=== PATIENT | female | born 1980 | race Caucasian/White ===

== ENCOUNTER 2018-06-12 07:15 | Day surgery (SDC) | payer OTHER ==
[~2018-06-12 07:15] MED LIST: CEFAZOLIN 1 GM INJ; LIDOCAINE 2% (SDV) 5 ML INJ
[2018-06-12] MEDS: SOD CHLORIDE 0.9% 1,000 ML IV (08:26)
[2018-06-12 08:29] LABS: ADD MAN DIFF? NO
[2018-06-12 08:37] LABS: BASOPHILS % 0.4 % (0.0-2.0); EOSINOPHILS # 0.4 10^3/ul (0.0-0.5); EOSINOPHILS % 4.2 % (0.0-7.0); HEMATOCRIT 34.5 % (37.0-47.0); HEMOGLOBIN 11.2 g/dl (12.0-16.0); LYMPHOCYTES # 2.7 10^3/ul (0.8-2.9); LYMPHOCYTES % 28.9 % (15.0-51.0); MEAN CORPUSCULAR HEMOGLOBIN 25.8 pg (29.0-33.0); MEAN CORPUSCULAR HGB CONC 32.5 g/dl (32.0-37.0); MEAN CORPUSCULAR VOLUME 79.5 fl (82.0-101.0); MEAN PLATELET VOLUME 9.2 fl (7.4-10.4); MONOCYTE # 0.6 10^3/ul (0.3-0.9); MONOCYTES % 6.7 % (0.0-11.0); NEUTROPHIL # 5.6 10^3/ul (1.6-7.5); NEUTROPHILS % 59.3 % (39.0-77.0); PLATELET COUNT 418 10^3/UL (140-415); RED BLOOD COUNT 4.34 10^6/ul (4.20-5.40); RED CELL DISTRIBUTION WIDTH 13.6 % (11.5-14.5)
[2018-06-12 08:37] LABS: WHITE BLOOD COUNT 9.5 10^3/ul (4.8-10.8)
[2018-06-12 08:54] LABS: ALANINE AMINOTRANSFERASE 33 IU/L (13-69); ALBUMIN 4.5 g/dl (3.3-4.9); ALBUMIN/GLOBULIN RATIO 1.25; ALKALINE PHOSPHATASE 88 IU/L (42-121); ANION GAP 15 (8-16); ASPARTATE AMINO TRANSFERASE 28 IU/L (15-46); BILIRUBIN,INDIRECT 0.6 mg/dl (0-1.1); BILIRUBIN,TOTAL 0.6 mg/dl (0.2-1.3); BLOOD UREA NITROGEN 12 mg/dl (7-20); CALCIUM 8.9 mg/dl (8.4-10.2); CARBON DIOXIDE 20 mmol/L (21-31); CHLORIDE 110 mmol/L (97-110); CREATININE 0.51 mg/dl (0.44-1.00); GLUCOSE 155 mg/dl (70-220); POTASSIUM 4.1 mmol/L (3.5-5.1); SODIUM 141 mmol/L (135-144); TOTAL PROTEIN 8.1 g/dl (6.1-8.1)
[2018-06-12] MEDS ORDERED: PROCHLORPERAZINE 10 MG INJ IV (09:30)
[2018-06-12] MEDS ORDERED: DIPHENHYDRAMINE 50 MG INJ IV (09:30)
[2018-06-12] MEDS ORDERED: OXYCODONE/ACETAMINOPHEN (5/325) TAB PO ×2 (09:30)
[2018-06-12] MEDS ORDERED: MEPERIDINE 25 MG INJ IV (09:30)
[2018-06-12] MEDS ORDERED: HYDROmorphONE 1 MG/5 ML IV SYRINGE IV ×3 (09:30)
[2018-06-12] MEDS ORDERED: FENTAnyl 50 MCG/ML VIAL IV ×3 (09:30)
[2018-06-12 09:32] LABS: INR 0.96; PROTIME 12.9 Sec (11.9-14.9)
[2018-06-12 09:33] LABS: PARTIAL THROMBOPLASTIN TIME 26.8 Sec (25.0-35.0)
[2018-06-12] MEDS ORDERED: PROPOFOL 20 ML ×2 (09:33→09:44)
[2018-06-12] MEDS ORDERED: LIDOCAINE 2 GM/D5W 500 ML (09:33)
[2018-06-12] MEDS ORDERED: SUCCINYLCHOLINE CHLORIDE 100 MG/5 ML SYG IV (09:33)
[2018-06-12] MEDS ORDERED: ROCURONIUM 50 MG INJ (09:33)
[2018-06-12] MEDS ORDERED: MIDAZOLAM 1 MG/ML 2 ML INJ ×2 (09:34→09:42)
[2018-06-12] MEDS ORDERED: FENTAnyl 50 MCG/ML VIAL (09:34)
[2018-06-12] MEDS ORDERED: ROPIVACAINE 0.5 % 30 ML VIAL (09:36)
[2018-06-12] MEDS ORDERED: ONDANSETRON 4 MG INJ (09:56)
[2018-06-12] MEDS ORDERED: FAMOTIDINE 20 MG INJ (09:56)
[2018-06-12] MEDS ORDERED: ACETAMINOPHEN 1000MG/100ML IV 100 ML (10:06)
[2018-06-12] MEDS ORDERED: HYDROmorphONE 2 MG/ML SYG (10:12)
[2018-06-12] MEDS: BUPIVACAINE 0.25% (MPF) 30 ML INJ (10:14)
[2018-06-12] MEDS ORDERED: SUGAMMADEX SODIUM 200 MG/2 ML VIAL IV ×2 (10:35)
[2018-06-12] MEDS: ONDANSETRON 4 MG INJ IV (11:59)
[2018-06-12] MEDS: HYDROCODONE/APAP (5/325) TAB PO (12:41)
[2018-06-12] MEDS ORDERED: CEFAZOLIN 2 GM/50 ML (PMX) 50 ML IVPB (13:00)
== END 2018-06-12 13:35 | disposition home or self-care (01) ==
LOC: SDS 07:15
DX: K80.10 Calculus of gallbladder with chronic cholecystitis without obstruction (principal); E11.9 Type 2 diabetes mellitus without complications; E66.01 Morbid (severe) obesity due to excess calories; Z68.41 Body mass index [BMI] 40.0-44.9, adult
CPT/HCPCS: 47562; 80053; 82962; 84703; 85025; 85610; 85730; 88304; J2001